=== PATIENT | male | born 1970 | race Caucasian/White ===

== ENCOUNTER → 2016-03-24 | Outpatient (CLI) | payer BC ==
--- NOTE | 2016-03-24 10:05 | DIAGNOSTIC IMAGING REPORT ---
RIGHT FIRST TOE 3 VIEWS, LEFT FIRST TOE 3 VIEWS CLINICAL HISTORY: Bilateral first toe pain. COMPARISON STUDY: None. FINDINGS: No fracture or dislocation within the right or left first toe. Soft tissues are within normal limits. Mild cartilage space narrowing and small marginal osteophytes at the bilateral first MTP joint. This is consistent with osteoarthritis. No erosions. No soft tissue calcifications. IMPRESSION: Mild osteoarthritis within the bilateral first MTP joints. Electronically signed by: Kev Pena M.D. 03/24/2016 10:03 AM Dictated Date/Time: 03/24/2016 10:01 AM
== END | disposition home or self-care (01) ==
LOC: C.RAD1850 09:43
PROVIDERS: ATTEND Family Medicine
DX: M79.674 Pain in right toe(s) (principal)